=== PATIENT | male | born 1950 ===

== ENCOUNTER 2022-12-21 04:47 | Day surgery (SDC) | payer OTHER ==
[~2022-12-21 04:47] MED LIST: ALBUTERO IH; ANORO ELLIPTA1 EACH IH; ARICEPT10 MG PO; ATACAND16 MG PO; FINASTERIDE5 MG PO; HORIZANT300 MG PO; HYDROCHLOROTHIA25 MG PO; NAMENDA10 MG PO; RISPERIDONE O0.25 MG PO; TAMSULOSIN HCL0.4 MG PO; [UNRECOGNIZED DRUG - OTHER] PO
[2022-12-21] MEDS ORDERED: PERCOCET 5-3251 EACH PO (08:26)
[2022-12-21] MEDS ORDERED: RECTICARE30 GM TOP (08:27)
== END 2022-12-21 13:10 | disposition home or self-care (01) ==
LOC: CIR.AMB 04:47
PROVIDERS: ATTEND Surgery
DX: K64.2 Third degree hemorrhoids (principal); R19.4 Change in bowel habit; Z20.822 Contact with and (suspected) exposure to COVID-19; I10 Essential (primary) hypertension